=== PATIENT | male | born 1945 | race Caucasian/White ===

== ENCOUNTER 2018-06-12 15:11 | Outpatient (CLI) | payer OTHER, SELFPAY ==
[2018-06-12 16:11] LABS: HCT 46.5 % (40.0-50.0); HGB 15.8 g/dL (13.5-17.5); Mean Corpuscular Hemoglobin 30.5 pg (27.0-33.0); Mean Corpuscular Volume 89.8 fL (80-95); Mean Platelet Volume 10.2 fL (8.0-11.0); Platelet Count 239 x1000/uL (130-400); RBC 5.18 m/cumm (4.50-6.00); RBC Distribution Width 12.3 % (11.8-14.1); White Blood Cell Count 9.39 k/cumm (4.4-10.8)
[2018-06-12 22:31] LABS: ESR 4 MM/HR (1-20)
== END 2018-06-12 15:31 ==
PROVIDERS: PCP Family Medicine; Visit Provider Family Medicine
DX: R21 Rash and other nonspecific skin eruption (principal); M25.50 Pain in unspecified joint
CPT/HCPCS: 36415; 80048; 80061; 83721; 84153; 85027; 85652; 86140

== ENCOUNTER 2018-12-13 10:01 | Outpatient (CLI) | payer OTHER, SELFPAY | END 2018-12-13 10:21 | PROVIDERS: PCP Family Medicine; Visit Provider Family Medicine | DX: I49.3 Ventricular premature depolarization (principal) ==

== ENCOUNTER 2018-12-14 15:16 | Outpatient (CLI) | payer OTHER, SELFPAY ==
--- NOTE | 2018-12-20 07:36 | HOLTER_ITS ---
HOLTER MONITOR DATE OF DICTATION December 19, [address] 5 hours, 53 minutes. Baseline rhythm sinus. Rare single PAC. Very frequent single PVC, 5195, 18.2% total beat. 293 couplet. 65 triplet. 2 runs NSVT: longest 4-beat duration, fastest 131 beats per minute. No bradycardia. No symptoms. Average heart rate 81 beats per minute, range 65-107 beats per minute. Jose Elias Lacy M.D. JENELLE/karina T - 12/20/2018
== END 2018-12-14 15:36 ==
PROVIDERS: PCP Family Medicine; Visit Provider Family Medicine
DX: I49.3 Ventricular premature depolarization (principal)
CPT/HCPCS: 93226

== ENCOUNTER 2018-12-19 17:10 | Outpatient (CLI) | payer OTHER, SELFPAY | END 2018-12-19 17:30 | PROVIDERS: PCP Family Medicine; Referring Provider Family Medicine; Visit Provider Internal Medicine Interventional Cardiology | DX: I49.3 Ventricular premature depolarization (principal) | CPT/HCPCS: 93227 ==

== ENCOUNTER 2021-08-02 11:20 | Day surgery (SDC) | payer MEDICARE, SELFPAY ==
--- NOTE | 2021-08-02 10:34 | W.ANESPRE ---
General Info Date of Service Date Performed: 08/02/21 Height: 5 ft 5.25 in Weight: 76.204 kg Body Mass Index (BMI): 27.7 Surgical Procedure: Operation Date: 08/02/21 12:55 Proposed Procedure Side Surgeon p Cataract Extraction with IOL Implant Left Duy Mcdaniels MD Meds Allergies and Home Medications Allergies Allergy/AdvReac Type Severity Reaction Status Date / Time oxycodone [From OxyContin] AdvReac Intermediate evening Verified 08/02/21 11:31 anxiety, unable to sleep Home Medication Medication Instructions Recorded ascorbic acid (vitamin C) 500 mg 500 mg PO BID tab-cap 02/04/14 capsule,extended release (Vitamin C) glucosamine 750 cf-[id number]-vlb 1 ea PO DAILY tab 02/04/14 no1 644 mg-C 30 mg-ferdinand 1 mg tablet (Osteo Bi-Flex Triple Strength) ibuprofen 200 mg capsule 200 mg PO Q6H PRN tab-cap 02/04/14 melatonin 5 mg disintegrating 5 mg PO DAILY tab 02/04/14 tablet multivitamin 1 ea PO DAILY tab 02/04/14 omega-3 fatty acids 300 mg capsule 300 mg PO DAILY tab 02/04/14 (Fish Oil) betamethasone dipropionate 0.05 % 1 applic TOPICAL BID PRN #30 g 10/24/17 topical ointment triamcinolone acetonide 0.1 % 1 applic TOPICAL BID PRN #30 g 10/24/17 topical cream lisinopril 5 mg tablet 2.5 - 5 mg PO DAILY #70 tab-cap 04/20/21 Current Visit Medications: Current Medications Generic Name Dose Route Start Last Admin Trade Name Freq PRN Reason Stop Dose Admin Acetaminophen 1,000 mg 08/02/21 06:00 Acetaminophen 500 Mg Tab PO Q4H PRN PRN Miscellaneous Medication 0 ml 08/02/21 06:00 Prednisolone 1%, Moxifloxacin 0.5%, Nepafenac 0.1% 5ml Btl OS DIRECTED [facility] Miscellaneous Medication 0 ml 08/02/21 06:00 Tropicam./Phenyleph. 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 Tobacco Smoking/Tobacco Use Status: Never Alcohol Alcohol Intake: current Alcohol intake frequency: holidays/special occasions only Alcohol type: beer Substance Use Substance use: Never Substance use type: does not use Vital Signs and Lab Results Lab Results Blood Type / Crossmatch: No Data to Display Complete Blood Count: No Data to Display Complete Metabolic Panel: No Data to Display Liver Function Panel: No Data to Display Coagulation Panel: No Data to Display Cardiac Panel: No Data to Display Arterial Blood Gas: No Data to Display Venous Blood Gas: No Data to Display Pancreas Panel: No Data to Display Thyroid Panel: No Data to Display Infectious Disease: No Data to Display Blood Cultures: No Data to Display Toxicology Panel: No Data to Display Anesthesia Assessment and Plan Anesthesia History Personal History: No History of Anesthesia Complications Family History: No Family History of Anesthesia Complications Exercise Tolerance Exercise Tolerance: Metabolic Equivalents>4 Pertinent Negatives Pertinent Negatives: No Symptoms of GERD, No Major Cardiovascular Symptoms or Complaints, No Major Pulmonary Symptoms or Complaints and No History of CVA/TIA Cardiac & Pulmonary Exam Cardiac Exam: Normal S1/S2 Heart Sounds Pulmonary Exam: Clear Bilateral Breath Sounds Implantable Cardiac Device Does patient have a Pacemaker or an ICD?: No Airway Exam Known Difficult Airway: No Mallampati Class: 2 Mouth Opening: Normal (> 3cm) Thyromental Distance: Greater than 3 cm Neck Range of Motion: Full ROM Neck Circumference: Normal Teeth Condition: Normal Dentition ASA Classification ASA Score: ASA 2 Emergency Case?: No NPO Status NPO Status: NPO Clears >2 hours, Solids >8 hours Anesthesia Plan Resuscitation Status: Full Code Anesthesia Technique: MAC Anesthesia Airway Planned: Natural Airway Monitors Used: Standard Monitors
[2021-08-02 11:41] VITALS: BP 146/78; PULSE 66; RESP 16; TEMP 36.5; O2SAT 98
[2021-08-02 11:46] VITALS: BMI 27.7
[2021-08-02] MEDS: Tropicam./Phenyleph. (1/2.5%) 5 ML BTL OS ×3 (11:55→12:06)
[2021-08-02] MEDS: Tetracaine 0.5% 4 ML BTL OS (12:21)
[2021-08-02] MEDS: Lidocaine 2% Jelly 6 ML SYR (12:22)
[2021-08-02] MEDS: Povidone-Iodine Ophth 30 ML BTL (12:25)
[2021-08-02] MEDS: Balanced Salt Soln.-PLUS 500 ML BAG (12:26)
[2021-08-02] MEDS: Duovisc Viscoelastic System EACH 1 EACH (12:26)
[2021-08-02 12:47] VITALS: BP 154/86; PULSE 52; RESP 16; TEMP 36.4; O2SAT 98
--- NOTE | 2021-08-02 12:47 | W.PM.DSUDISC ---
Discharge Plan Disposition Patient Disposition: HOME Condition: Good Discharge Details Attending Provider: Duy Mcdaniels Primary Care Provider: Alcides Mckeon Home Meds and New Rx's Prescriptions: No Action ibuprofen 200 MG capsule 200 mg PO Q6H PRN 0RF ascorbic acid (vitamin C) [Vitamin C] 500 MG capsule, extended release 500 mg PO BID 0RF multivitamin 1 EACH capsule 1 ea PO DAILY 0RF Fish Oil 300 MG capsule 300 mg PO DAILY 0RF melatonin 5 MG tablet,disintegrating 5 mg PO DAILY 0RF Osteo Bi-Flex Triple Strength 1 EACH tablet 1 ea PO DAILY 0RF cmpd 0 Topical BID PRNQty: 240 4RF Rx Instructions: Clotrimazole/zinc oxide Apply to legs triamcinolone acetonide 15 GM cream 1 applic Topical BID PRNQty: 30 3RF Rx Instructions: Apply to legs as needed betamethasone dipropionate 15 GM ointment 1 applic Topical BID PRNQty: 30 3RF Rx Instructions: Apply to legs as needed lisinopril 5 mg tablet 2.5 - 5 mg PO DAILY Qty: 70 4RF Rx Instructions: alt 2.5/5 mg Discharge Instructions Stand Alone Forms: Post-op Topical Cataract, Press Ganey (DSU) Discharge Orders Discharge Orders: Discharge Order (Routine); Ordered 08/02/21 Ordered By: Duy Mcdaniels DS: Diagnosis Discharge Diagnosis (1) Nuclear sclerotic cataract of left eye: Status: Resolved (2) Cortical cataract of left eye: Status: Resolved
--- NOTE | 2021-08-02 12:48 | ROE_ITS ---
Date of service: 08/02/21 Time of Service: 12:48 Operative Note Operative Note DATE OF PROCEDURE: 08/02/21 PRE-OP DIAGNOSIS: Nuclear/cortical cataract, left eye POST-OP DIAGNOSIS: same PROCEDURE: Cataract extraction using phacoemulsification with intraocular lens implant, left eye SURGEON: Duy Mcdaniels ANESTHESIA TYPE: Local By Surgeon and MAC Refer to Anesthesia Record PATHOLOGY: none sent COMPLICATIONS: None Patient was transported to: same day Patient's condition: stable Implants: Teofilo [employer] Te[employer]ilo / [employer] Tecnis [id number] Indications: Progressive decreased vision due to cataract, left eye Procedure Description: CATARACT SURGERY OPERATIVE REPORT PREOPERATIVE DIAGNOSIS: 1. Nuclear/cortical cataract, left eye POSTOPERATIVE DIAGNOSIS: Same OPERATION: 1. Cataract extraction using phacoemulsification with posterior chamber intraocular lens implant, left eye. IOL: IOL Roof Bolter Helper/Model: Teofilo & Teofilo / ABHI Tecnis [id number] IOL Power: + 22.0 diopters IOL Serial Number: [id number] Optic Diameter: 6.0 mm Haptic/Overall Diameter: 13.0 mm PHACO INFO: [employer] Vision System with OZil and Active Fluidics Cumulative Dispersed Energy (CDE): 5.91 seconds SURGEON: Duy Mcdaniels MD, DARLENE ANESTHESIA: Monitored A [facility] (MAC), with local sub-tenon's anesthetic infiltration COMPLICATIONS: None SPECIMENS: None INDICATIONS FOR PROCEDURE: The patient is a 76-year-old gentleman with history of diminished visual acuity in both eyes secondary to the development of bilateral nuclear/cortical cataract. The option of cataract surgery was offered to the patient and he felt he was symptomatic enough that he wished to proceed. PROCEDURE: The correct surgical eye was identified and marked as the left eye and the pupil was dilated in the preoperative area using mydriatics and cycloplegics. The dilated pupil size was 7.0 mm. He elected to proceed without oral sedation.. The patient was brought to the operating room where cardiopulmonary monitoring was instituted and surgical time-out was performed, confirming the correct operative eye and IOL power. Topical anesthesia was administered and ophthalmic povidone-iodine 5% was instilled into the conjunctival fornices. Lidocaine gel was applied to the cornea and the leah-ocular area was prepped with Betadine 10% solution and draped in the usual sterile fashion for intraocular surgery, including an aperture drape. A Tegaderm transparent film dressing was cut in half and used to cover the lashes and lid margins. Care was taken to sequester the lashes and lid margins under the Tegaderm dressing. A lid speculum was placed between the lids of the operative eye and the Antonio [employer] operating microscope was maneuvered into position. Jose Ramon scissors were then used to make a conjunctival buttonhole approximately 6mm posterior to the limbus in the inferonasal quadrant. Blunt dissection was carried out to expose bare sclera, and a blunt-tipped sub-tenon?s anesthesia cannula was introduced and passed posteriorly along the globe where non- preserved plain lidocaine was injected into posterior sub-Tenon?s space. A sideport knife was used to make a paracentesis port superiorly/superi ortemporally. Intraocular phenylephrine/lidocaine was injected int the anterior chamber.. The anterior chamber was filled with viscoelastic. A 2.4mm keratome knife was used to create a half-thickness groove at the limbus and then to construct a three-plane near-clear corneal tunnel extending 2.0mm into clear cornea at the 3:00 position. A flap was raised on the anterior capsule and capsulorhexis forceps were used to complete a continuous curvilinear capsulorhexis of 5.0. mm. The eye had to be fixated with the second hand due to constant rapid eye movement. Capsulorhexis was challenging. Balanced salt solution was then used to perform cortical cleaving hydrodissection and nuclear hydrodelineation until the lens could be freely rotated within the capsular bag. The lens nucleus was then disassembled and removed within the capsular bag and iris plane using phacoemulsification. Residual cortical material was removed using the 45-degree angled silicone I/A tip with 0.3mm port. The posterior capsule was carefully polished to remove as much residual lens epithelial cells as safely possible. The capsular bag was then inflated and the anterior chamber deepened with viscoelastic. The lens implant described above was inserted into the capsular bag using the ABHI Teller Injector. A Kuglen hook was used to dial the IOL into position. Residual viscoelastic was then removed first from posterior to the IOL, then from the anterior chamber using the I/A handpiece. The lens implant was noted to center nicely within the capsular bag. The incisions were stromally hydrated, and the anterior chamber was reformed using BSS. Then 0.5cc of moxifloxacin 1.0mg/ml were injected into the capsular bag and anterior chamber. The incisions were checked with a Weck spear and found to be secure. Several drops of ophthalmic povidone-iodine 5% were then applied to the eye followed by two drops of Imprimis combination prednisolone/moxifloxacin/nepafenac solution. The drapes were removed and a clear plastic protective eye shield was placed over the eye. The patient was then returned to Same Day Surgery in stable condition.
--- NOTE | 2021-08-02 14:03 | W.ANESPOSTOP ---
Postoperative Evaluation Date, Time and Location Date Performed: 08/02/21 Time Performed: 14:04 Patient Location: Day Surgery Unit Vital Signs Most Recent Imported Vital Signs: Most Recent Vital Signs Temp Pulse Resp BP Pulse Ox 36.4 C L 52 L 16 154/86 H 98 08/02/21 12:47 08/02/21 12:47 08/02/21 12:47 08/02/21 12:47 08/02/21 12:47 Pain Score Most Recent Pain Score: Most Recent Pain Score Pain Level 0 08/02/21 12:47 Assessment Mental Status: Awake (Alert & Oriented to Patient Baseline) Airway and Respiratory Function: Patent airway with normal (patient baseline) respiratory exam Cardiovascular Function: Hemodynamically Stable Hydration Status: Adequately Hydrated Nausea & Vomiting: No Nausea or Vomiting Pain: Pt. Denies Any Pain Peripheral Nerve Block: Other (Local by Dr. Mcdaniels) Postoperative Comments:: Seen earlier and appropriate for d/c at that time.
== END 2021-08-02 13:35 | disposition home or self-care (01) ==
PROVIDERS: PCP Family Medicine; Visit Provider Ophthalmology
PROC: (CPT 66984; principal; 2021-08-02 12:45)
DX: H25.12 Age-related nuclear cataract, left eye (principal); I49.3 Ventricular premature depolarization; L30.9 Dermatitis, unspecified; I10 Essential (primary) hypertension
CPT/HCPCS: 66984; V2632

== ENCOUNTER 2021-08-16 10:27 | Day surgery (SDC) | payer MEDICARE, SELFPAY ==
--- NOTE | 2021-08-16 06:43 | W.ANESPRE ---
General Info Date of Service Date Performed: 08/16/21 Height: 5 ft 6 in Weight: 77 kg Body Mass Index (BMI): 27.3 Surgical Procedure: Operation Date: 08/16/21 12:10 Proposed Procedure Side Surgeon p Cataract Extraction with IOL Implant Right Duy Mcdaniels MD Meds Allergies and Home Medications Allergies Allergy/AdvReac Type Severity Reaction Status Date / Time oxycodone [From OxyContin] AdvReac Intermediate evening Verified 08/16/21 10:52 anxiety, unable to sleep Home Medication Medication Instructions Recorded ascorbic acid (vitamin C) 500 mg 500 mg PO BID tab-cap 02/04/14 capsule,extended release (Vitamin C) glucosamine 750 ic-[id number]-[id number] 1 ea PO DAILY tab 02/04/14 no1 644 mg-C 30 mg-ferdinand 1 mg tablet (Osteo Bi-Flex Triple Strength) ibuprofen 200 mg capsule 200 mg PO Q6H PRN tab-cap 02/04/14 melatonin 5 mg disintegrating 5 mg PO DAILY tab 02/04/14 tablet multivitamin 1 ea PO DAILY tab 02/04/14 omega-3 fatty acids 300 mg capsule 300 mg PO DAILY tab 02/04/14 (Fish Oil) betamethasone dipropionate 0.05 % 1 applic TOPICAL BID PRN #30 g 10/24/17 topical ointment triamcinolone acetonide 0.1 % 1 applic TOPICAL BID PRN #30 g 10/24/17 topical cream lisinopril 5 mg tablet 2.5 - 5 mg PO DAILY #70 tab-cap 04/20/21 Current Visit Medications: Current Medications Generic Name Dose Route Start Last Admin Trade Name Freq PRN Reason Stop Dose Admin Acetaminophen 1,000 mg 08/16/21 06:00 Acetaminophen 500 Mg Tab PO Q4H PRN PRN Miscellaneous Medication 0 ml 08/16/21 06:00 Prednisolone 1%, Moxifloxacin 0.5%, Nepafenac 0.1% 5ml Btl OD DIRECTED [facility] Miscellaneous Medication 0 ml 08/16/21 06:00 Tropicam./Phenyleph. 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 BPH (benign prostatic hyperplasia) N40.0 Essential hypertension 02/04/14 I10 Frequent PVCs I49.3 Bilateral cataracts H26.9 Cortical cataract of left eye H26.9 Nuclear sclerotic cataract of left eye H25.12 Cortical cataract of right eye H26.9 Nuclear sclerotic cataract of right eye H25.11 Medical History Medical History (Updated 08/12/21 @ 12:22 by Kelly Crain RN) Bronchitis Cataract Surgical History Surgical History (Updated 08/12/21 @ 12:22 by Kelly Crain RN) Appendectomy (~1976) Colonoscopy - MAC 2005 History of cataract surgery Tonsillectomy and adenoidectomy (~1958) 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 Tobacco Smoking/Tobacco Use Status: Never Alcohol Alcohol Intake: current Alcohol intake frequency: holidays/special occasions only Alcohol type: beer Substance Use Substance use: Never Substance use type: does not use Vital Signs and Lab Results Vital Signs Most Recent Vital Signs in EMR: Temp Pulse Resp BP Pulse Ox 36.4 C L 53 L 16 141/74 H 97 08/16/21 10:58 08/16/21 10:58 08/16/21 10:58 08/16/21 10:58 08/16/21 10:58 Lab Results Blood Type / Crossmatch: No Data to Display Complete Blood Count: No Data to Display Complete Metabolic Panel: No Data to Display Liver Function Panel: No Data to Display Coagulation Panel: No Data to Display Cardiac Panel: No Data to Display Arterial Blood Gas: No Data to Display Venous Blood Gas: No Data to Display Pancreas Panel: No Data to Display Thyroid Panel: No Data to Display Infectious Disease: No Data to Display Blood Cultures: No Data to Display Toxicology Panel: No Data to Display Anesthesia Assessment and Plan Anesthesia History Personal History: No History of Anesthesia Complications Family History: No Family History of Anesthesia Complications Exercise Tolerance Exercise Tolerance: Metabolic Equivalents>4 Cardiac & Pulmonary Exam Cardiac Exam: Normal S1/S2 Heart Sounds Pulmonary Exam: Clear Bilateral Breath Sounds Implantable Cardiac Device Does patient have a Pacemaker or an ICD?: No Airway Exam Known Difficult Airway: No Mallampati Class: 2 Mouth Opening: Normal (> 3cm) Thyromental Distance: Greater than 3 cm Neck Range of Motion: Full ROM Neck Circumference: Normal Teeth Condition: Normal Dentition ASA Classification ASA Score: ASA 2 Emergency Case?: No NPO Status NPO Status: NPO Clears >2 hours, Solids >8 hours Anesthesia Plan Resuscitation Status: Full Code Anesthesia Technique: MAC Anesthesia Airway Planned: Natural Airway Monitors Used: Standard Monitors Preoperative Comments:: 76 yo male for cataract removal. Sig PMHx: PVCs, never smoker, occ EtOH. previous cat without MKO. no healthy history change.
[2021-08-16] MEDS: Tropicam./Phenyleph. (1/2.5%) 5 ML BTL OD ×3 (10:56→11:06)
[2021-08-16 10:58] VITALS: BP 141/74; PULSE 53; RESP 16; TEMP 36.4; O2SAT 97
[2021-08-16 11:03] VITALS: BMI 27.3
[2021-08-16] MEDS: Tetracaine 0.5% 4 ML BTL OD (11:56)
[2021-08-16] MEDS: Povidone-Iodine Ophth 30 ML BTL (11:57)
[2021-08-16] MEDS: Balanced Salt Soln.-PLUS 500 ML BAG (11:57)
[2021-08-16] MEDS: Duovisc Viscoelastic System EACH 1 EACH (11:57)
[2021-08-16] MEDS: Lidocaine 2% Jelly 6 ML SYR (11:57)
[2021-08-16 12:01] VITALS: BP 111/73; PULSE 58; RESP 16; TEMP 36.6; O2SAT 98
--- NOTE | 2021-08-16 12:03 | W.PM.DSUDISC ---
Discharge Plan Disposition Patient Disposition: HOME Condition: Good Discharge Details Attending Provider: Duy Mcdaniels Primary Care Provider: Alcides Mckeon Home Meds and New Rx's Prescriptions: No Action ibuprofen 200 MG capsule 200 mg PO Q6H PRN 0RF ascorbic acid (vitamin C) [Vitamin C] 500 MG capsule, extended release 500 mg PO BID 0RF multivitamin 1 EACH capsule 1 ea PO DAILY 0RF Fish Oil 300 MG capsule 300 mg PO DAILY 0RF melatonin 5 MG tablet,disintegrating 5 mg PO DAILY 0RF Osteo Bi-Flex Triple Strength 1 EACH tablet 1 ea PO DAILY 0RF cmpd 0 Topical BID PRNQty: 240 4RF Rx Instructions: Clotrimazole/zinc oxide Apply to legs triamcinolone acetonide 15 GM cream 1 applic Topical BID PRNQty: 30 3RF Rx Instructions: Apply to legs as needed betamethasone dipropionate 15 GM ointment 1 applic Topical BID PRNQty: 30 3RF Rx Instructions: Apply to legs as needed lisinopril 5 mg tablet 2.5 - 5 mg PO DAILY Qty: 70 4RF Rx Instructions: alt 2.5/5 mg Discharge Instructions Stand Alone Forms: Post-op Topical Cataract, Press Ganey (DSU) Discharge Orders Discharge Orders: Discharge Order (Routine); Ordered 08/16/21 Ordered By: Duy Mcdaniels DS: Diagnosis Discharge Diagnosis (1) Nuclear sclerotic cataract of right eye: Status: Resolved (2) Cortical cataract of right eye: Status: Resolved
--- NOTE | 2021-08-16 12:04 | W.PM.OP ---
Date of service: 08/16/21 Time of Service: 12:04 Operative Note Operative Note DATE OF PROCEDURE: 08/16/21 PRE-OP DIAGNOSIS: Nuclear/cortical cataract, right eye POST-OP DIAGNOSIS: same PROCEDURE: Cataract extraction using phacoemulsification with intraocular lens implant, right eye SURGEON: Duy Mcdaniels ANESTHESIA TYPE: Local By Surgeon and MAC Refer to Anesthesia Record ESTIMATED BLOOD LOSS: 0 PATHOLOGY: none sent COMPLICATIONS: None Patient was transported to: same day Patient's condition: stable Implants: Teofilo & Teofilo/ABHI Tecnis [id number] Indications: Progressive visual loss due to cataract, right eye Procedure Description: CATARACT SURGERY OPERATIVE REPORT PREOPERATIVE DIAGNOSIS: 1. Nuclear/cortical cataract, right eye POSTOPERATIVE DIAGNOSIS: Same OPERATION: 1. Cataract extraction using phacoemulsification with posterior chamber intraocular lens implant, right eye. IOL: IOL Direct Entry Midwife/Model: Teofilo & Teofilo / ABHI Tecnis [id number] IOL Power: + 22.0 diopters IOL Serial Number: [id number] Optic Diameter: 6.0mm Haptic/Overall Diameter: 13.0mm PHACO INFO: [employer] Vision System with OZil and Active Fluidics Cumulative Dispersed Energy (CDE): 6.45 seconds SURGEON: Duy Mcdaniels MD, DARLENE ANESTHESIA: Monitored Anesthesia Care (MAC), with local sub-tenon's anesthetic infiltration COMPLICATIONS: None SPECIMENS: None INDICATIONS FOR PROCEDURE: The patient is a 77-year-old gentleman who has developed significant bilateral nuclear and cortical cataract. He has already undergone cataract surgery in the left eye and is doing well postoperatively. He now presents for cataract surgery in the right eye. PROCEDURE: The correct surgical eye was identified and marked as the right eye and the pupil was dilated in the preoperative area using mydriatics and cycloplegics. The dilated pupil size was 7.0 mm. He elected to proceed without oral sedation. The patient was brought to the operating room where cardiopulmonary monitoring was instituted and surgical time-out was performed, confirming the correct operative eye and IOL power. Topical anesthesia was administered and ophthalmic povidone-iodine 5% was instilled into the conjunctival fornices. Lidocaine gel was applied to the cornea and the leah-ocular area was prepped with Betadine 10% solution and draped in the usual sterile fashion for intraocular surgery, including an aperture drape. A Tegaderm transparent film dressing was cut in half and used to cover the lashes and lid margins. Care was taken to sequester the lashes and lid margins under the Tegaderm dressing. A lid speculum was placed between the lids of the operative eye and the Antonio [employer] operating microscope was maneuvered into position. Jose Ramon scissors were then used to make a conjunctival buttonhole approximately 6mm posterior to the limbus in the inferonasal quadrant. Blunt dissection was carried out to expose bare sclera, and a blunt-tipped sub-tenon?s anesthesia cannula was introduced and passed posteriorly along the globe where non-preserved plain lidocaine was injected into posterior sub-Tenon?s space. A sideport knife was used to make a paracentesis port inferotemporally. Intraocular phenylephrine/lidocaine was injected into the anterior chamber. The anterior chamber was filled with viscoelastic. A 2.4mm keratome knife was used to create a half-thickness groove at the limbus and then to construct a three-plane near-clear corneal tunnel extending 2.0mm into clear cornea superiortemporally. A flap was raised on the anterior capsule and capsulorhexis forceps were used to complete a continuous curvilinear capsulorhexis of 5.0 mm. Balanced salt solution was then used to perform cortical cleaving hydrodissection and nuclear hydrodelineation until the lens could be freely rotated within the capsular bag. The lens nucleus was then disassembled and removed within the capsular bag and iris plane using phacoemulsification. Residual cortical material was removed using the I/A handpiece. The posterior capsule was carefully polished to remove as much residual lens epithelial cells as safely possible. The capsular bag was then inflated and the anterior chamber deepened with viscoelastic. The lens implant described above was inserted into the capsular bag using the ABHI [place] Injector. A Kuglen hook was used to dial the IOL into position. Residual viscoelastic was then removed first from posterior to the IOL, then from the anterior chamber using the I/A handpiece. The lens implant was noted to center nicely within the capsular bag. The incisions were stromally hydrated, and the anterior chamber was reformed using BSS. Then 0.5cc of moxifloxacin 1.0mg/ml were injected into the capsular bag and anterior chamber. The incisions were checked with a Weck spear and found to be secure. Several drops of ophthalmic povidone-iodine 5% were then applied to the eye followed by two drops of Imprimis combination prednisolone/moxifloxacin/nepafenac solution. The drapes were removed and a clear plastic protective eye shield was placed over the eye. The patient was then returned to Same Day Surgery in stable condition.
--- NOTE | 2021-08-16 12:17 | W.ANESPOSTOP ---
Postoperative Evaluation Date, Time and Location Date Performed: 08/16/21 Time Performed: 12:17 Patient Location: Day [facility] Unit Vital Signs Most Recent Imported Vital Signs: Most Recent Vital Signs Temp Pulse Resp BP Pulse Ox 36.6 C 58 L 16 111/73 98 08/16/21 12:01 08/16/21 12:01 08/16/21 12:01 08/16/21 12:01 08/16/21 12:01 Pain Score Most Recent Pain Score: Most Recent Pain Score Pain Level 0 08/16/21 12:01 Assessment Mental Status: Awake (Alert & Oriented to Patient Baseline) Airway and Respiratory Function: Patent airway with normal (patient baseline) respiratory exam Cardiovascular Function: Hemodynamically Stable Hydration Status: Adequately Hydrated Nausea & Vomiting: No Nausea or Vomiting Pain: Pt. Denies Any Pain Peripheral Nerve Block: Patient did not receive a nerve block
== END 2021-08-16 12:26 | disposition home or self-care (01) ==
PROVIDERS: PCP Family Medicine; Visit Provider Ophthalmology
PROC: (CPT 66984; principal; 2021-08-16 12:00)
DX: H25.11 Age-related nuclear cataract, right eye (principal); I10 Essential (primary) hypertension; I49.3 Ventricular premature depolarization
CPT/HCPCS: 66984; V2632

== ENCOUNTER → 2022-08-25 09:50 | Outpatient (BNVA) | payer MEDICARE, SELFPAY | PROVIDERS: PCP Family Medicine; Referring Provider Family Medicine; Visit Provider Nurse Practitioner Adult Health | DX: G56.03 Carpal tunnel syndrome, bilateral upper limbs (principal); G56.22 Lesion of ulnar nerve, left upper limb | CPT/HCPCS: 95910; 99203; 99214 ==

== ENCOUNTER 2023-11-28 09:56 | Emergency (ER) | payer MEDICARE, SELFPAY ==
[2023-11-28 09:58] VITALS: BP 122/70; PULSE 76; RESP 16; TEMP 36.6; O2SAT 98
--- NOTE | 2023-11-28 10:17 | W.ED.GENAD ---
Discharge Plan Disposition Patient Disposition: Home Condition: Stable Discharge Details Clinical Impression: Diarrhea Primary Care Provider: Cris Ku ED Provider: Anjali Epstein Home Meds and New Rx's Prescriptions: Continued cholecalciferol (vitamin D3) 50 mcg (2,000 unit) capsule 50 mcg PO DAILY ibuprofen 200 MG capsule 200 mg PO Q6H PRN ascorbic acid (vitamin C) [Vitamin C] 500 MG capsule, extended release 500 mg PO BID multivitamin 1 EACH capsule 1 ea PO DAILY Fish Oil 300 MG capsule 300 mg PO DAILY melatonin 5 MG tablet,disintegrating 5 mg PO DAILY Osteo Bi-Flex Triple Strength 1 EACH tablet 1 ea PO DAILY triamcinolone acetonide 15 GM cream 1 applic Topical BID PRNQty: 30 Rx Instructions: Apply to legs as needed betamethasone dipropionate 15 GM ointment 1 applic Topical BID PRNQty: 30 Rx Instructions: Apply to legs as needed lisinopril 5 mg tablet 2.5 - 5 mg PO DAILY Qty: 70 4RF Rx Instructions: alt 2.5/5 mg Discharge Instructions Instructions: Probiotics, Diarrhea, Adult ED Additional Instructions: Please collect stool sample at your convenience at home and bring into the lab. If you are unable to bring them right away please refrigerate it or place it on ice. At this time no evidence of infection, no evidence of blood in your stool, no evidence of electrolyte abnormality or elevated lipase which could indicate a gallbladder issue. Follow up with primary care provider in 3-5 days. Return to ED sooner if any worsening blood in your stool, abdominal pain, fever chills, vomiting or concerns. Consider following a brat diet such as bananas rice apples toast. Stay away from anything fried fatty spicy or dairy. Referrals: Cris Ku, [facility] [Primary Care Provider] - 5 days HPI General Mode of arrival: ambulatory. Date/Time Provider Initiated Documentation: 11/28/23 10:05. Limitations to Documentation: no limitations. Information obtained by: patient, RN notes reviewed and old records reviewed. HPI Narrative: 78-year-old male presents to the ER with chief complaint of diarrhea which is black-colored over the last 1 to 2 days. He reports that he has been taking Imodium after each diarrheal stool. He did take 2 Imodium's this morning around 4 AM. He had an episode around 7 AM this morning as well. Denies any abdominal pain denies any fever chills problems urinating lightheaded dizziness or any other associated symptoms. He does take Tylenol nightly. Denies any aspirin or ibuprofen or blood thinners. He did take Pepto-Bismol approximately a day ago. Denies any recent travel no sick contacts. Does have a past medical history of hypertension, BPH, diverticulosis, DJD, bronchitis cataracts this is surgical history includes appendectomy hip replacement tonsillectomy and cataract surgeries. Non smoker, denies alcohol or illicit drugs. Related Data Home Medications ?Medication ?Instructions ?Recorded ?Confirmed ascorbic acid (vitamin C) 500 mg 500 mg PO BID 02/04/14 11/28/23 capsule,extended release (Vitamin C) glucosamine 750 [id number] 1 ea PO DAILY 02/04/14 11/28/23 no1 644 mg-C 30 mg-ferdinand 1 mg tablet (Osteo Bi-Flex Triple Strength) ibuprofen 200 mg capsule 200 mg PO Q6H PRN 02/04/14 11/28/23 melatonin 5 mg disintegrating 5 mg PO DAILY 02/04/14 11/28/23 tablet multivitamin 1 ea PO DAILY 02/04/14 11/28/23 omega-3 fatty acids 300 mg capsule 300 mg PO DAILY 02/04/14 11/28/23 (Fish Oil) betamethasone dipropionate 0.05 % 1 applic topical BID PRN #30 grams 10/24/17 11/28/23 topical ointment triamcinolone acetonide 0.1 % 1 applic topical BID PRN #30 grams 10/24/17 11/28/23 topical cream cholecalciferol (vitamin D3) 50 50 mcg PO DAILY 10/11/22 11/28/23 mcg (2,000 unit) capsule lisinopril 5 mg tablet 2.5 - 5 mg (0.5 - 1 x 5 mg) PO 08/07/23 11/28/23 DAILY #70 tab-caps Previous Rx's ?Medication ?Instructions ?Recorded lisinopril 5 mg tablet 2.5 - 5 mg (0.5 - 1 x 5 mg) PO 08/07/23 DAILY #70 tab-caps Allergies Allergy/AdvReac Type Severity Reaction Status Date / Time oxycodone (From OxyContin) AdvReac Intermediate evening Verified 11/28/23 10:02 anxiety, unable to sleep General Stated Complaint: Abd Prob NICOLE: 3 Review of Systems All systems reviewed & are unremarkable except as noted in HPI and below Gastrointestinal Gastrointestinal: Reports as per HPI, Denies abdominal pain, Reports melena, Reports change in bowel habits, Denies fecal incontinence, Reports diarrhea, Reports loose stools, Denies nausea and Denies vomiting Exam Narrative Exam Narrative: Constitutional: Alert and oriented x3. Appears stated age. Normal body habitus. Head: Normocephalic, no trauma. Eyes: Pupils PERRL, Red reflex noted, EOM's intact. Eyelids symmetrical without lesions, discharge, or swelling. ENT: Bilateral TM's WNL, External ear normal to inspection, no mastoid TTP, swelling, or erythema, Nasal turbinates WNL, no nasal discharge. Normal dentition, Posterior pharynx WNL, no exudate. Chest: RRR, Normal S1, S2, distal pulses intact. Resp: Lungs clear to auscultation bilaterally, no wheezes, rales, or rhonchi. Abdomen: Soft, non-distended, Normoactive bowel sounds all 4 quads. Musculoskeletal: Normal gait, Moves all 4 extremities without difficulty. Skin: No suspicious rashes or lesions. Capillary refill less than 2 sec. Neurologic: Cranial nerves II-XII intact. Alert and oriented x 3. Motor: No deficits noted. Sensory: Intact bilaterally all 4 extremities. Hematologic/Lymphatic: No ecchymosis, no lymphadenopathy. Const General: cooperative, healthy appearing, comfortable and well developed Nutritional Appearance: average body habitus Orientation: alert, awake and oriented x3 Resp Effort & Inspection: normal respiratory effort and able to speak in complete sentences Auscultation: clear to auscultation bilaterally Cardio Palpation: normal PMI Rate: regular rate Rhythm: regular rhythm Heart Sounds: S1 normal and S2 normal GI Rectal Exam: visual inspection normal, normal sphincter tone, heme negative stool, No hemorrhoids, No laceration, No lesions, prostate abnormal enlarged, No symmetric and No tenderness Other: enlarged prostate noted, no hemorrhoids, loose dark stool guaic negative. Course Vital Signs Vital signs: Vital Signs Temperature 36.6 C 11/28/23 09:58 Pulse 76 11/28/23 09:58 Respiratory Rate 16 11/28/23 09:58 Blood Pressure 122/70 11/28/23 09:58 Pulse Oximetry 98 11/28/23 09:58 Temperature 36.6 C 11/28/23 09:58 Temperature Source Temporal Artery Scan 11/28/23 09:58 Pulse 76 11/28/23 09:58 Respiratory Rate 16 11/28/23 09:58 Respiratory Effort Normal, Non-Labored 11/28/23 10:04 Blood Pressure 122/70 11/28/23 09:58 Blood Pressure Position Sitting 11/28/23 09:58 Pulse Oximetry 98 11/28/23 09:58 Oxygen Delivery Method Room Air 11/28/23 09:58 Oxygen Flow Rate 0 11/28/23 09:58 Pain Level 0 11/28/23 09:58 Procedures Stool Hemoccult Procedural Steps Taken: stool placed in appropriate test area, developer placed on stool and control areas and controls appropriately positive and negative Hemoccult result: negative Medical Decision Making 78-year-old male presents to the ER with chief complaint of diarrhea which is black-colored over the last 1 to 2 days. He reports that he has been taking Imodium after each diarrheal stool. He did take 2 Imodium's this morning around 4 AM. He had an episode around 7 AM this morning as well. Denies any abdominal pain denies any fever chills problems urinating lightheaded dizziness or any other associated symptoms. He does take Tylenol nightly. Denies any aspirin or ibuprofen or blood thinners. He did take Pepto-Bismol approximately a day ago. Denies any recent travel no sick contacts. Does have a past medical history of hypertension, BPH, diverticulosis, DJD, bronchitis cataracts this is surgical history includes appendectomy hip replacement tonsillectomy and cataract surgeries. Non smoker, denies alcohol or illicit drugs. Stool studies ordered including ova parasites, stool pathogens. CBC CMP lipase. LIDIA performed, Almita OROZCO as witness, prostate slightly enlarged,. Patient tolerated well, small amount of loose liquid dark stool obtained. Guaiac Hemoccult negative. I did discuss brat diet with patient, increasing electrolyte drinks while having diarrhea. Patient reports that this has been ongoing intermittently since September. Does have a history of diverticulosis however he reports no increased pain with this. Will consider imaging if labs abnormal. BUN/creatinine slightly elevated. BUN 21 creatinine 1.4 GFR 51, given 500 cc bolus of normal saline. I did discuss follow-up care, strict return instructions and diet including brat diet and electrolyte solutions while having diarrhea. At this time I feel it is safe for patient to be discharged home at this time due to guaiac negative stool, and unremarkable labs. Patient is hemodynamically stable alert and oriented has no abdominal pain lipase within normal limits. This text was generated using [employer] dictation system, please disregard any oddities of phrase or misspellings. Lab Data Lab results reviewed: Yes I reviewed the patient's lab results. Labs: 11/28/23 10:06 Stool Stool Occult Blood (PAOP) - Pending Laboratory Tests Range/Units 11/28/23 10:35 WBC (4.4-10.8) 10^3/uL 6.83 RBC (4.36-5.78) 10^6/uL 4.77 Hgb (13.5-17.5) g/dL 14.7 Hct (40.0-50.0) % 43.5 MCV (80-95) fL 91 MCH (27.0-33.0) pg 30.8 MCHC (32.0-36.0) % 33.8 RDW (11.8-14.1) % 11.7 L Plt Count (130-400) 10^3/uL 236 MPV (8.0-11.0) fL 9.2 Immature Gran % % 0.3 Neutrophils % % 64.5 Lymphocytes % % 20.9 Monocytes % % 12.4 Eosinophils % % 1.8 Basophils % % 0.1 Nucleated RBC % (0.0-0.3) % 0.0 Absolute Neutrophils (1.2-6.7) 10^3/uL 4.40 Absolute Lymphocytes (1.2-3.4) 10^3/uL 1.43 Absolute Monocytes (0.1-0.8) 10^3/uL 0.85 H Absolute Eosinophils (0.0-0.7) 10^3/uL 0.12 Absolute Basophils (0.0-0.2) 10^3/uL 0.01 Sodium (136-145) mmol/L 139 Potassium (3.5-5.1) mmol/L 3.7 Chloride (98-107) mmol/L 103 Carbon Dioxide (21.0-32.0) mmol/L 29.3 Anion Gap (3-11) mmol/L 6.7 BUN (7-18) mg/dL 21 H Creatinine (0.70-1.30) mg/dL 1.4 H Est GFR (CKD-EPI 2020) (mL/min/1.73m2) 51.77 Glucose (74-106) mg/dL 120 H Calcium (8.5-10.1) mg/dL 9.1 Total Bilirubin (0.2-1.0) mg/dL 0.55 AST (15-37) U/L 15 ALT (16-63) U/L 25 Alkaline Phosphatase (46-116) U/L 84 Total Protein (6.4-8.2) g/dL 7.1 Albumin (3.4-5.0) g/dL 3.6 Lipase (16-77) U/L 40 Quality:[facility] Health Related Social Needs: No Data to Display PFSH All Active Problems (Updated 11/28/23 @ 11:35 by Anjali Epstein NP) Diarrhea (Acute) Eczema (Acute) Diverticulosis (Acute) DJD (degenerative joint disease) (Acute) 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 Tonsillectomy and adenoidectomy (~1959) [place] [facility] [place] (~1976) Family History Mother , 82 Diabetes Essential hypertension CHF (congestive heart failure) Heart disease Stroke Father , 64 Heart disease AAA; CAD Asthma Alcohol abuse Sister Heart disease Brother , 76 Heart disease Hypertension Maternal Grandfather No problems noted. Paternal Grandfather No problems noted. Maternal Grandmother No problems noted. Sister , 64 Alcohol abuse Sister , 69 Alcohol abuse Daughter No problems noted. Daughter No problems noted. Social History Smoking/Tobacco Use Status: Never Second Hand Exposure: No Smoking risk assessment performed?: Yes Alcohol Intake: never Drug use: Never Substance use type: does not use Caregiver/Support person: No Household members: spouse Housing: house Communication Needs: None Education Level: college Details: 3 years Do you need help understanding health information?: Never current occupation: RN Pets and animals: No Sexually active: No Do you think of yourself as: straight/heterosexual Current gender identity: male What is your relationship status?: How often do you talk on the phone with friends or family?: three or more times per week How often do you get together with friends or relatives?: three or more times per week How often do you attend rastafarian or scientologist services?: decline to answer Do you belong to any clubs or organized social groups?: no Panel score (0-1 are the most socially isolated patients): 2 What type of physical activity do you participate in: weight lifting Duration: > 90 minutes/day Frequency: 3-4 times per week Binta/Pentecostalism: [employer]ybeterian Special binta needs: No Seatbelt use: always Helmet use: Yes Helmet use: sometimes Drive intox or ride w/intox retail delivery driver: No Do you feel safe in your relationship?: Yes Victim of physical abuse: No Victim of emotional abuse: No Victim of sexual abuse: No Would you like helpful sources: No
[2023-11-28 10:40] LABS: Abs Immature Grans 0.02 10^3/uL (0.0-0.06); Absolute Basophil Count 0.01 10^3/uL (0.0-0.2); Absolute Eosinophil Count 0.12 10^3/uL (0.0-0.7); Absolute Lymphocyte Count 1.43 10^3/uL (1.2-3.4); Absolute Monocyte Count 0.85 10^3/uL (0.1-0.8); Basophils % 0.1 %; Eosinophils % 1.8 %; HCT 43.5 % (40.0-50.0); HGB 14.7 g/dL (13.5-17.5); Immature Grans % 0.3 %; Lymphocytes % 20.9 %; MCH 30.8 pg (27.0-33.0); MCHC 33.8 % (32.0-36.0); MCV 91 fL (80-95); MPV 9.2 fL (8.0-11.0); Monocytes % 12.4 %; Neutrophils % 64.5 %; Platelet Count 236 10^3/uL (130-400); RBC 4.77 10^6/uL (4.36-5.78); RDW 11.7 % (11.8-14.1); RDW-SD 39.3 fL; WBC 6.83 10^3/uL (4.4-10.8)
[2023-11-28 10:57] LABS: ALT 25 U/L (16-63); AST 15 U/L (15-37); Albumin 3.6 g/dL (3.4-5.0); Alkaline Phosphatase 84 U/L (46-116); Anion Gap 6.7 mmol/L (3-11); BUN 21 mg/dL (7-18); Bilirubin, Total 0.55 mg/dL (0.2-1.0); CO2 29.3 mmol/L (21.0-32.0); CREATININE 1.4 mg/dL (0.70-1.30); Calcium 9.1 mg/dL (8.5-10.1); Chloride 103 mmol/L (98-107); Estimated GFR 51.77 (mL/min/1.73m2); Glucose 120 mg/dL (74-106); Lipase 40 U/L (16-77); Potassium 3.7 mmol/L (3.5-5.1); Sodium 139 mmol/L (136-145); Total Protein 7.1 g/dL (6.4-8.2)
[2023-11-28 11:44] VITALS: BP 140/108; PULSE 61; RESP 16; TEMP 36.8; O2SAT 99
== END 2023-11-28 11:47 | disposition home or self-care (01) ==
PROVIDERS: Emergency Provider Registered Nurse Emergency; PCP Nurse Practitioner Family
DX: R19.7 Diarrhea, unspecified (principal)
CPT/HCPCS: 36415; 80053; 83690; 99283; 82270; 85025; 99282

== ENCOUNTER 2023-11-30 22:30 | Outpatient (REF) | payer MEDICARE, SELFPAY | END 2023-11-30 22:31 | disposition home or self-care (01) | LOC: LBN 22:30 | PROVIDERS: PCP Nurse Practitioner Family; Visit Provider Registered Nurse Emergency | DX: R19.7 Diarrhea, unspecified (principal) | CPT/HCPCS: 87177 ==

== ENCOUNTER 2023-12-01 18:52 | Outpatient (REF) | payer MEDICARE, SELFPAY ==
[2023-11-30 12:07] LABS: Campylobacter PCR Negative (Negative); Salmonella PCR Negative (Negative); Shiga Toxin PCR Positive (Negative); Shigella/Enteroinvasive Ecoli Negative (Negative)
== END 2023-12-01 18:53 | disposition home or self-care (01) ==
LOC: LBN 18:52
PROVIDERS: PCP Nurse Practitioner Family; Visit Provider Registered Nurse Emergency
DX: R19.7 Diarrhea, unspecified (principal)
CPT/HCPCS: 87505; 82272; 83630; 87177